=== PATIENT | male | born 1965 | race Caucasian/White ===

== ENCOUNTER 2023-02-01 10:41 | Emergency (ER) | payer SELFPAY ==
[2023-02-01 10:55] VITALS: RESP 18; TEMP 98.6; BMI 25.7
[2023-02-01] MEDS ORDERED: SODIUM CHLORIDE 1,000 ML IV STA (11:44)
[2023-02-01] MEDS ORDERED: ACETAMINOPHEN 1000 MG/100 ML BAG IVPB ONE (11:45)
[2023-02-01] MEDS ORDERED: ACETAMINOPHEN INJECTION 100 ML IVPB ONE (11:52)
[2023-02-01 13:04] LABS: HEMATOCRIT 43.6 % (35.4-49); HEMOGLOBIN 14.1 GM/dL (11.7-16.9); MCH 27.5 pg (25.7-33.7); MCHC 32.4 g/dl (32.0-35.9); MEAN PLT VOLUME 9.6 fl (7.5-11.1); PLATELET COUNT 190 10^3/uL (134-434); RBC 5.13 M/mm3 (4.00-5.60); RDW 15.3 % (11.9-15.9); WHITE BLOOD COUNT 12.2 K/mm3 (4.0-10.0)
[2023-02-01 13:49] LABS: CALCIUM 8.9 mg/dL (8.5-10.1)
[2023-02-01 13:50] LABS: BLOOD UREA NITROGEN 13.4 mg/dL (7-18)
[2023-02-01 13:53] LABS: CREATININE 0.8 mg/dL (0.55-1.3)
[2023-02-01 13:55] LABS: BILIRUBIN,TOTAL 0.6 mg/dL (0.2-1); TOT PROT 6.8 g/dl (6.4-8.2)
[2023-02-01 14:43] LABS: EPI CELLS 4 /uL (0-25.1); HYALINE CASTS 0 /uL (0-3.1); PH,URINE 6.5 (5.0-8.0); URINE APPEARANCE CLEAR; URINE BACTERIA 12 /uL (0-1359); URINE BILIRUBIN NEGATIVE (NEGATIVE); URINE COLOR YELLOW; URINE GLUCOSE (UA) NEGATIVE (NEGATIVE); URINE KETONE TRACE (NEGATIVE); URINE LEUK ESTERASE TRACE (NEGATIVE); URINE NITRITE NEGATIVE (NEGATIVE); URINE PROTEIN 1+ (NEGATIVE); URINE RBC 89 /uL (0-23.9); URINE WBC 16 /uL (0-25.8)
[2023-02-01 15:56] VITALS: BP 143/79; PULSE 89
== END 2023-02-01 16:51 | disposition home or self-care (01) ==
LOC: JER 10:41
PROC: 3E033NZ Introduction of Analgesics, Hypnotics, Sedatives into Peripheral Vein, Percutaneous Approach (ICD-10-PCS; principal; 2023-02-01)
PROC: 3E0337Z Introduction of Electrolytic and Water Balance Substance into Peripheral Vein, Percutaneous Approach (ICD-10-PCS; 2023-02-01)
PROC: 0T9B70Z Drainage of Bladder with Drainage Device, Via Natural or Artificial Opening (ICD-10-PCS; 2023-02-01)
DX: R33.9 Retention of urine, unspecified (principal); R11.2 Nausea with vomiting, unspecified; R19.4 Change in bowel habit; R30.0 Dysuria; K59.00 Constipation, unspecified; R68.83 Chills (without fever); R63.0 Anorexia; M79.10 Myalgia, unspecified site; R10.30 Lower abdominal pain, unspecified; Z20.822 Contact with and (suspected) exposure to COVID-19
CPT/HCPCS: 0241U-QW; 36415; 74177-TC; 80053; 81003; 82272; 85027; 87086; 99285-25